=== PATIENT | male | born 1955 | race Caucasian/White ===

== ENCOUNTER 2017-08-21 11:33 | Inpatient (IN) | payer MEDICAID, SELFPAY ==
[2017-08-21] VITALS (11 sets, daily range): BP systolic 113–164; BP diastolic 68–89; PULSE 83–112; RESP 15–28; TEMP 36.4–37.2; O2SAT 93–98; BMI 20.9; BMI 21.2
--- NOTE | 2017-08-21 12:29 | CM.ED ---
Social Work Note Referral from horse show manager stating that pt's significant other wants to speak with SW. Into pt's room and significant other not present. Introduced self and role at [facility]. The pt reports to be living out of his car as he has for the past two weeks. He no longer is employed and does not have a residence. States that he was staying with his sister, but she went on vacation and he does not know if he can stay there when she returns. He does not have a hx of staying at [facility]. Pt reports to drink a half gallon of vodka for every two days. Denies that this was why he is unemployed and states that he quit his job. Inquire if he is interested in treatment and pt states, I got to do something. Pt asks if [facility] has any treatment and inform the pt of [facility] and he states he would prefer to stay local. Educate to the [facility] and discuss [facility]. Pt is agreeable to a referral to [facility]. States his significant other wanted to speak to SW regarding HCPOA. SW to check back with as time allows. Referral made to Lisandra with [facility] who will come to talk to the pt regarding their services. Praveena Vogt, TECHNICAL TRAINING SPECIALIST, [employer]ECTIVE [employer]
[2017-08-21] MEDS: 0.9% Normal Saline 1,000 ML 1000 ML IV ×2 (12:39)
[2017-08-21 12:43] LABS: Hematocrit 34.7 % (40-54); Hemoglobin 12.5 g/dl (13.0-16.5); Mean Corpuscular Hgb 36.1 pg (27.0-32.0); Mean Corpuscular Volume 100.3 fL (80-94); Mean Platelet Vol. 8.2 fl (6.2-12.0); Platelet Count 374 K/mm3 (150-450); RBC Distribution Width CV 11.2 % (11.6-14.6); RBC Distribution Width SD 40.2 fl (35.1-43.9); Red Blood Count 3.46 M/mm3 (4.6-6.2); White Blood Count 8.7 K/mm3 (4.4-11.0)
[2017-08-21 12:45] LABS: Scan Indicated on CBC? Y/N NO
[2017-08-21 13:01] LABS: ALB/GLOB Ratio 0.8 RATIO (0.9-2.4); AST(SGOT) 34 U/L (15-37); Alanine Aminotransfer ALT/SGPT 23 U/L (16-61); Albumin, Serum 3.2 g/dL (3.2-5.0); Alkaline Phosphatase 62 U/L (45-117); Anion Gap 10 (5-15); BUN 11 mg/dL (7-18); BUN/Creat Ratio 12.6 RATIO (10-20); Calcium,Total 8.4 mg/dL (8.5-10.1); Chloride 84 mmol/L (98-107); Creatinine, Serum 0.87 mg/dL (0.70-1.30); EST Glomerular Filtration Rate 95 mL/min (>60); Est Glom Filt Rate - Afr Amer 115 mL/min (>60); Estimated Creatinine Clearance 74.37 ml/min; Glucose 103 mg/dL (74-106); Lipase 230 U/L (73-393); Potassium 2.4 mmol/L (3.5-5.1); Protein, Total 7.2 g/dL (6.4-8.2); Sodium Level 126 mmol/L (136-145)
--- NOTE | 2017-08-21 13:01 | ED.RN ---
LAB CALLED TO NOTIFY PT LAB RESULT. POTASSIUM OF 2.4, DR. BRANDON NOTIFIED FACE TO FACE. NO ORDERS GIVEN.
[2017-08-21] MEDS: Thiamine Hydrochloride 200 MG/2 ML Vial 100 MG IV (13:07)
--- NOTE | 2017-08-21 15:01 | NURSING ---
DR SHARI BRANDON
--- NOTE | 2017-08-21 15:04 | NURSING ---
DR MCCARTHY IN ER
--- NOTE | 2017-08-21 15:05 | NURSING ---
MED SURG ALCOHOL USE, WITHDRAWAL CORNICI
--- NOTE | 2017-08-21 15:13 | ED.VISSUMM ---
- ER Visit Summary Date of Service: 08/21/17 Chief Complaint: Weakness History of Present Illness: The patient is a 62 M presents with weakness nausea and inability to eat for the last 2-3 days. He is an alcoholic he has not eaten and has continued to drink alcohol. He does not feel confused. He has a history of pancreatitis but he has no abdominal pain. Physical Examination: Not appear in acute distress. Appears chronically ill. Dry mucous membranes, no obvious facial deformity No C-spine tenderness supple neck. Regular rate and rhythm without any obvious murmurs Clear lungs bilaterally speaking in full sentences without any obvious respiratory distress Abdomen soft and nontender no guarding or rebound Moves all extremities without any difficulty or pain. There is a gluteal ulcerated lesion that does not appear infected Alert oriented ?3 with no gross focal deficit Emergency Department Course and Treatment: Patient is found to be hyponatremic, hypokalemic and dehydrated. Thiamine was given. Potassium was given an IV fluids. Patient will be admitted for further workup. Disposition: Admit stable condition Impression: Hypokalemia Hyponatremia Dehydration Chronic alcoholism This note was generated with [employer] dictation software. It may contain incorrect words, spelling, and punctuation that were not noted in review of the chart prior to signing ED Disposition - Plan for ED Patient: Chief Complaint: Substance Abuse Referrals: Dylon Flores MD [Primary Care Provider] -
--- NOTE | 2017-08-21 15:30 | HP.PCM_ITS ---
Problem List (1) Generalized weakness Status: Acute (2) Recurrent falls Status: Acute (3) Chronic alcohol use and dependence Status: Acute (4) Gastritis Status: Acute (5) Pancreatic pseudocyst Status: Chronic (6) Pancreatitis Status: Chronic (7) Alcohol abuse Status: Chronic (8) Cholelithiasis Status: Chronic (9) GERD (gastroesophageal reflux disease) Status: Chronic (10) Hiatal hernia Status: Chronic (11) Hypertension Status: Chronic (12) Severe malnutrition Status: Chronic (13) Tobacco dependence Status: Chronic History of Present Illness Date of Admission: 08/21/17 Chief Complaint: Chronic alcohol abuse and dependence and withdrawal The patient is a 62 year old M with multiple comorbidities including recurrent admission for alcohol withdrawal and acute on recurrent pancreatitis came to ER with generalized weakness, nausea, loss of appetite and recurrent fall and poor general health. Patient denies hematemesis, melena or hematochezia or abdominal pain. He has known history of pancreatitis and is on pancreatic lipase tablet. Patient has multiple wounds and scabs on lower extremities and also on cleft and buttock region. Patient also complained of burning sensation and pain and needles on lower legs and feet. Denies diabetes mellitus. Patient daily drinks half a gallon of vodka, increased his dose about 3 weeks ago. Patient has history of remission and relapsed multiple times. He denies other substance use including opioids, IV heroin, crack cocaine or drugs. Denies any recent seizure, hallucination. Currently is alert awake and oriented and coherent speech. In ED, vitals showed heart rate 112/min, blood pressure 162/81 normal pulse ox. Basic labs was significant for severe hypokalemia, 2.4, hyponatremia sodium 126 , but normal platelet, hemoglobin 12.5 g percent. LFTs in normal range. Lipase normal [] Past Medical History Past Medical History (Chronic Problems): Chronic Problems Pancreatic pseudocyst (Chronic) Pancreatitis (Chronic) Cholelithiasis (Chronic) Alcohol abuse (Chronic) Hiatal hernia (Chronic) GERD (gastroesophageal reflux disease) (Chronic) Severe malnutrition (Chronic) Tobacco dependence (Chronic) Hypertension (Chronic) Allergies Penicillins [PCN] Allergy (Verified 08/21/17 11:34) Unknown Home Medications: Ambulatory Orders Medication Instructions Recorded Folic Acid 1 mg PO DAILY@0800 05/31/16 Multivitamin [Daily Multiple 1 each PO DAILY 04/18/17 Vitamin] Spironolactone [Aldactone] 50 mg PO BID #60 tablet 06/18/16 Aspirin [Aspirin, Baby] 81 mg PO DAILY@0800 07/29/16 Magnesium Oxide [Mag-Ox 400] 400 mg PO DAILY 07/29/16 Pantoprazole Sodium [Protonix] 40 mg PO DAILY #30 tablet 07/31/16 lipase/protease/amylase 1 capsule PO TIDCM #90 capsule 07/31/16 [Pancrelipase (5000-17,000-27,000)] Ondansetron [Zofran Odt] 4 mg PO Q6H PRN PRN 08/21/17 Surgical History: no surgical history Psychiatric History: No pertinent psych hx Smoking Status: Current every day smoker - *Family History Paternal History Items: Asthma, - - No known medical history. Sibling History Items: - - Brother of cancer. Maternal History Items: Cancer - Unknown what type. Review of Systems Constitutional: Reports: Anorexia, Malaise, Weakness, Fatigue HEENT: Denies: Head Aches, Sinus Congestion, Sinus Drainage Cardiovascular: Denies: Chest Pain, Palpitations Respiratory: Denies: Cough, Shortness of breath at rest, Sputum production Gastrointestinal: Reports: Diarrhea, Nausea. Denies: Abdominal Pain, Hematemesis, Hematochezia, Melena, Vomiting Genitourinary: Denies: Dysuria Musculoskeletal: Denies: Joint Pain, Joint Tenderness Skin: Denies: Rash, Wounds Neurological: Reports: Balance problems, Confusion. Denies: Focal weakness, Numbness, Tingling Psychiatric: Denies: Anxiety, Depression, Homicidal Ideations, Suicidal Ideations Hematologic/ Lymphatic: Denies: Easy Bruising, Easy Bleeding VTE Information - Inpt Only VTE Present on Admission: No VTE Mechan Device Prophylaxis: SCD's VTE Pharm Prophylaxis ordered?: Yes Patient Problems: Active and Suspected Problems Generalized weakness (Acute) Recurrent falls (Acute) Chronic alcohol use and dependence (Acute) - Physical Exam General: Alert, Oriented x3, Cooperative HEENT: Atraumatic, PERRLA, EOMI, Normocephalic Oral: Dry Mucosa Neck: Supple, No JVD, Negative Carotid Bruits Lungs: Clear to auscultation, Normal air movement, No rhonchi, No wheeze, No rales Cardiovascular: Regular rate, Regular Rhythm, Normal S1, Normal S2, No murmurs Abdomen: Bowel Sounds Present, Soft, Non Tender, Non-Distended Extremities: No edema, Capillary Refill Less than 3 Seconds Skin: Ulcer/ Wound - Multiple superficial wounds in his calves on the extremities and in the buttocks and cleft. No discharge. Musculoskeletal: No Tenderness to Palpation of Joints or Extremities, Arthritic Changes, Muscle Wasting Neurological: Cranial nerves II-XII grossly intact Psych/Mental Status: Normal Affect, Appropriate Vital Signs Temp Pulse Resp BP Pulse Ox 97.8 F 97 28 H 145/89 H 96 08/21/17 11:34 08/21/17 14:33 08/21/17 14:33 08/21/17 14:33 08/21/17 14:33 Assessment/Plan All Active Problems Generalized weakness (Acute) Recurrent falls (Acute) Chronic alcohol use and dependence (Acute) Gastritis (Acute) Acute alcoholic pancreatitis (Resolved) Ascites (Resolved) Right leg DVT (Resolved) The patient is a 62 year old M with multiple comorbidities including recurrent admission for alcohol withdrawal and acute on recurrent pancreatitis came to ER with generalized weakness, nausea, loss of appetite and recurrent fall and poor general health. Patient denies hematemesis, melena or hematochezia or abdominal pain. He has known history of pancreatitis and is on pancreatic lipase tablet. Patient has multiple wounds and scabs on lower extremities and also on bridget cleft and buttock region. Patient also complained of burning sensation and pain and needles on lower legs and feet. Denies diabetes mellitus. Patient daily drinks half a gallon of vodka, increased his dose about 3 weeks ago. Patient has history of remission and relapsed multiple times. He denies other substance use including opioids, IV heroin, crack cocaine or drugs. Denies any recent seizure, hallucination. Currently is alert awake and oriented and coherent speech. In ED, vitals showed heart rate 112/min, blood pressure 162/81 normal pulse ox. Basic labs was significant for severe hypokalemia, 2.4, hyponatremia sodium 126 , but normal platelet, hemoglobin 12.5 g percent. LFTs in normal range. Lipase normal [] 1. Chronic alcohol use and dependence with concern of alcohol withdrawal: Currently, patient is having diarrhea and at home sometimes he gets confused. The patient is being admitted on regular MedSur floor on telemetry. IV fluid normal saline with KCl, IV thiamine given in ER and continued, multivitamin. Serum B12, folic acid and thiamine ordered. On medical stabilization program as per [facility] protocol for alcohol withdrawal. 2. Recurrent fall: PT and OT evaluation. Patient is not able to take care of himself. 3. Severe protein calorie malnutrition, anorexia secondary to chronic alcohol use: Senior Qc Technician consult. On nutritional supplement. 4. Electrolyte disorder: Severe hypokalemia, hyponatremia: Electrolytes being replaced. Monitor and correct accordingly. 5. Recurrent pancreatitis with history of endoscopic pancreatic cyst removal in May 2017: Patient had pancreatic cyst removed in [facility]. Currently lipase is normal and he denies abdominal pain other symptoms of pancreatitis. 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 The polyp was not removed because the pt was on anticoagulation for DVT. EGD showed GERD and gastritis with a small HH. He also had MRCP which showed normal pancreatic duct and a small 0.9 cm cystic focus in pancreatic body for which she had pancreatic cyst removal as mentioned above. 6. Other chronic comorbidities include hypertension, GERD, gastritis, and tobacco dependence: On Protonix. Home medication reconciliation done. Patient is on his spironolactone 50 mg twice daily after he had ascites during admission in May 2016 DVT prophylaxis: On heparin 5000 units subcutaneous twice daily and bilateral SCDs This note was generated with [employer] dictation software. Every effort was made to ensure accuracy, however computerized manager critical care mistakes may persist. Code Visit Inpatient E&M: 97737 Init Hosp L3
[2017-08-21 16:51] LABS: GGTP 94 U/L (15-85)
[2017-08-21] MEDS: chlordiazePOXIDE 25 MG Capsule 50 MG PO ×2 (17:07→22:25)
[2017-08-21] MEDS: Heparin Injection (Vial) 5,000 UNIT/ML VIAL 5000 UNIT SC (17:08)
[2017-08-21] MEDS: Multivitamins,Therapeutic Tablet 1 TABLET PO (17:22)
[2017-08-21] MEDS: Magnesium Oxide 400 MG Tablet PO ×2 (17:22→22:25)
[2017-08-21] MEDS: Spironolactone 25 MG Tablet 50 MG PO (17:22)
[2017-08-21] MEDS: Aspirin 81 MG TAB.CHEW PO (17:45)
[2017-08-21] MEDS: 0.9% NaCl Peripheral Flush Adult/Peds IV (17:45)
[2017-08-21 17:55] LABS: Bedside Glucose 95 mg/dL (70-110)
[2017-08-21] MEDS: Loperamide 2 MG Capsule PO (18:19)
[2017-08-21] MEDS: Potassium Chloride 40 MEQ in 0.9% Normal Saline 1,000 ML 125 MEQ IV (20:51)
[2017-08-21 21:28] LABS: Magnesium 0.9 mg/dL (1.6-2.6); Potassium 3.3 mmol/L (3.5-5.1)
[2017-08-21] MEDS: traZODone 50 MG Tablet PO (22:25)
[2017-08-22] VITALS (12 sets, daily range): BP systolic 126–162; BP diastolic 78–89; PULSE 74–87; RESP 16–18; TEMP 36.8–37.2; O2SAT 98–99
[2017-08-22] MEDS: chlordiazePOXIDE 25 MG Capsule 50 MG PO ×3 (03:44→17:38)
[2017-08-22 03:50] LABS: Amphetamine Urine VISTA NEGATIVE (<1000 ng/mL); Barbiturate Urine VISTA NEGATIVE (< 200 ng/mL); Benzodiazepine Urine VISTA POSITIVE (< 200 ng/mL); Cocaine Urine VISTA NEGATIVE (< 300 ng/mL); Ecstacy Urine VISTA NEGATIVE (< 500 ng/mL); Methadone Urine VISTA NEGATIVE (< 300 ng/mL); PCP Urine VISTA NEGATIVE (< 25 ng/mL); THC Urine VISTA NEGATIVE (< 50 ng/mL); Vista UDS pH Range 6
[2017-08-22] MEDS: Potassium Chloride 40 MEQ in 0.9% Normal Saline 1,000 ML 125 MEQ IV ×3 (04:58→22:35)
[2017-08-22 06:31] LABS: Anion Gap 10 (5-15); BUN 14 mg/dL (7-18); BUN/Creat Ratio 18.5 RATIO (10-20); Calcium,Total 6.9 mg/dL (8.5-10.1); Chloride 102 mmol/L (98-107); Creatinine, Serum 0.76 mg/dL (0.70-1.30); EST Glomerular Filtration Rate 112 mL/min (>60); Est Glom Filt Rate - Afr Amer 135 mL/min (>60); Estimated Creatinine Clearance 85.92 ml/min; Glucose 86 mg/dL (74-106); Potassium 3.1 mmol/L (3.5-5.1); Sodium Level 140 mmol/L (136-145)
[2017-08-22 07:50] LABS: Magnesium 0.8 mg/dL (1.6-2.6)
[2017-08-22] MEDS: Folic Acid 1 MG Tablet PO (08:20)
[2017-08-22] MEDS: Spironolactone 25 MG Tablet 50 MG PO ×2 (08:20→21:43)
[2017-08-22] MEDS: Magnesium Oxide 400 MG Tablet PO ×2 (08:20→21:43)
[2017-08-22] MEDS: Aspirin 81 MG TAB.CHEW PO (08:20)
[2017-08-22] MEDS: Multivitamins,Therapeutic Tablet 1 TABLET PO (08:21)
[2017-08-22] MEDS: Pantoprazole Sodium 40 MG Tablet PO (08:21)
[2017-08-22] MEDS: Thiamine Hydrochloride 100 MG Tablet PO (08:21)
[2017-08-22] MEDS: Heparin Injection (Vial) 5,000 UNIT/ML VIAL 5000 UNIT SC ×2 (08:22→21:44)
--- NOTE | 2017-08-22 09:58 | PCM.PN.HOSP ---
Patient Problems: Active and Suspected Problems Generalized weakness (Acute) Recurrent falls (Acute) Chronic alcohol use and dependence (Acute) Subjective: Patient is a 62-year-old male with a history of chronic alcohol abuse and chronic pancreatitis. He was admitted by the ED with a complaint of generalized weakness, nausea, loss of appetite and recurrent falls. He says he drinks about 1/2 gallon of vodka daily and his last drink was prior to admission, but could not remember the exact time. He denied any other drug use. Labs done showed severe hypokalemia with potassium of 2.4, hyponatremia with sodium of 126 last otherwise normal. He has been admitted for hypokalemia and hyponatremia. Seen and examined. He had no complaints and feels better. She has been drinking for a long while but tried quitting after going to rehab. The results were unsuccessful he started drinking again a few months ago because of some family problems. Is currently itinerant and living with a friend in [place] as a sister who usually lives with is out of town. Denies any fever or chills, any cough or chest pain, shortness of breath, any abdominal pain, any diarrhea vomiting. Review of systems otherwise negative. Vitals/I&O's: Vital Signs Temp Pulse Resp BP Pulse Ox 98.5 F 78 16 136/86 H 99 08/22/17 08:25 08/22/17 08:25 08/22/17 08:25 08/22/17 08:25 08/22/17 08:25 Oxygen Delivery Method Room Air Weight: 131 lb 3.2 oz Body Mass Index (BMI) 21.2 Intake and Output for Last 24 Hours 08/20/17 08/21/17 08/22/17 23:59 23:59 23:59 Intake Total 120 / 120 2086 Balance 120 / 120 2086 General: Alert, Oriented x3, Cooperative, No apparent distress HEENT: Atraumatic, PERRLA, EOMI, Normocephalic Oral: Moist Mucosa Neck: Supple, No JVD, Negative Carotid Bruits Lungs: Clear to auscultation, Normal air movement, No rhonchi, No wheeze, No rales Cardiovascular: Regular rate, Regular Rhythm, Normal S1, Normal S2, No murmurs Abdomen: Bowel Sounds Present, Soft, Non Tender, Non-Distended, No Hepato-splenomegaly Extremities: No edema, Capillary Refill Less than 3 Seconds Skin: No rashes, No breakdown Musculoskeletal: No Tenderness to Palpation of Joints or Extremities Lymphatic: No Cervical, Supraclavicular, or Inguinal Adenopathy Neurological: Cranial nerves II-XII grossly intact, Motor Exam 5/5 strength throughout, - - Gait not assessed as he said he felt unstable when walking Psych/Mental Status: Flat Affect, Alert and oriented to time, place, person, mood and affect Laboratory Results 08/21/17 17:48: POC Glucose 95 08/21/17 20:56: Potassium 3.3 L, Magnesium 0.9 L* 08/22/17 01:20: Urine Opiates Screen NEGATIVE, Urine Methadone Screen NEGATIVE, Ur Barbiturates Screen NEGATIVE, Ur Phencyclidine Scrn NEGATIVE, Ur Amphetamines Screen NEGATIVE, U Methamphetamin-MDMA NEGATIVE, U Benzodiazepines Scrn POSITIVE H, Urine Cocaine Screen NEGATIVE, U Cannabinoids Screen NEGATIVE, Ur Drug Screen Comment 08/22/17 05:32: Sodium 140, Potassium 3.1 L, Chloride 102, Carbon Dioxide 28.0, Anion Gap 10, BUN 14, Creatinine 0.76, Estim Creat Clear Calc 85.92, Est GFR (MDRD) Af Amer 135, Est GFR (MDRD) Non-Af 112, BUN/Creatinine Ratio 18.5, Glucose 86, Calcium 6.9 L, Folate 10.20 08/22/17 05:32: Vitamin B12 Pending 08/22/17 05:32: Whole Bld Vitamin B1 Pending 08/22/17 05:32: Magnesium 0.8 L* Current Medications Acetaminophen (Tylenol) 500 mg PO Q4H PRN PRN PRN Reason: Temp > 100.4 F Al Hydroxide/Mg Hydroxide (Mylanta Ii) 30 ml PO Q6H PRN PRN PRN Reason: dyspesia Aspirin (Aspirin, Baby) 81 mg PO DAILY@0800 [facility] Last Admin: 08/22/17 08:20 Dose: 81 mg Chlordiazepoxide (Librium) 50 mg PO Q6H [facility] PRN Reason: Taper Stop: 08/24/17 17:59 Last Admin: 08/22/17 09:26 Dose: 50 mg Dicyclomine HCl (Bentyl) 20 mg PO Q6H PRN PRN PRN Reason: abdominal discomfort [facility]) [facility] Admin: 08/22/17 08:20 Dose: 1 mg Heparin Sodium (Porcine) (Heparin Na) 5,000 unit SC Q12 [facility] Last Admin: 08/22/17 08:22 Dose: 5,000 u Hydroxyzine Pamoate (Vistaril Pamoate Capsule) 50 mg PO Q6H PRN PRN PRN Reason: Mild Anxiety (score 1/3) Potassium Chloride 40 meq/ (Sodium Chloride) 1,020 mls @ 125 mls/hr IV .Q8H10M [facility] Last Admin: 08/22/17 04:58 Dose: 125 mls/hr Ibuprofen (Motrin) 400 mg PO Q8H PRN PRN PRN Reason: Mild-Moderate Pain (1-5/10) Loperamide HCl (Imodium) 2 - 4 mg PO UD PRN PRN Reason: LOOSE STOOLS Last Admin: 08/21/17 18:19 Dose: 4 mg Lorazepam (Ativan) 1 mg IV Q4H PRN PRN PRN Reason: Severe Anxiety Magnesium Oxide (Mag-Ox 400) 400 mg PO BID [facility] Last Admin: 08/22/17 08:20 Dose: 400 mg Methocarbamol (Methocarbamol) 750 mg PO Q6H PRN PRN PRN Reason: Muscle Aches Multivitamins ([facility]ivitamin) [facility] Last Admin: 08/22/17 08:21 Dose: 1 tablet Nutritional Formula (Lactose Free) (Ensure Enlive) 120 ml PO 4X/DAY [facility] Last Admin: 08/22/17 08:24 Dose: 120 ml Ondansetron HCl (Zofran Odt) 4 mg PO Q6H PRN PRN PRN Reason: NAUSEA Pancrelipase (Pancrelipase (5000-17,000-27,000)) 1 capsule PO TIDCM [facility] Last Admin: 08/22/17 08:21 Dose: 1 capsule Pantoprazole Sodium (Protonix) 40 mg PO DAILY [facility] Last Admin: 08/22/17 08:21 Dose: 40 mg Senna (Senokot) 1 tablet PO QHS PRN PRN Reason: Constipation Sodium Chloride () 5 - 30 ml IV UD PRN PRN Reason: SALINE FLUSH Last Admin: 08/21/17 17:45 Dose: 10 ml Spironolactone (Aldactone) 50 mg PO BID [facility] Last Admin: 08/22/17 08:20 Dose: 50 mg Thiamine HCl (Vitamin B1) 100 mg PO DAILYCM [facility] Last Admin: 08/22/17 08:21 Dose: 100 mg Trazodone HCl (Desyrel) 50 mg PO QHS [facility] Last Admin: 08/21/17 22:25 Dose: 50 mg Medical Necessity - Tobacco Use Smoking Status: Current every day smoker Tobacco Use: Cigarettes Assessment/Plan All Active Problems Generalized weakness (Acute) Recurrent falls (Acute) Chronic alcohol use and dependence (Acute) Gastritis (Acute) Acute alcoholic pancreatitis (Resolved) Ascites (Resolved) Right leg DVT (Resolved) 1. 62-year-old male with history of chronic alcohol abuse and recurrent pancreatitis admitted with complaint of frequent falls and general feeling of unwellness. 1. Hypokalemia likely due to alcohol abuse K was 3.3 on admission, is 3.1 today will replace and monitor 2. Hypomagnesemia: and hypocalcemia was 0.9 on admission, replaced. Now 0.8. Will replace and monitor calcium is 6.9 today, corrected for albumin ~ 7.5. will replace and monitor 3. 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 Gait not assessed as he didnt feel comfortable walking. PT/OT consulted. 4. Chronic alcohol abuse About half a bottle of vodka every day. Received IV thiamine in the ED. On IV fluids normal saline with potassium replacement. Multivite. Serum vitamin B12 and folic acid levels ordered. Alcohol withdrawal protocol as per [facility] protocol. CIWA score today is 1 5. Recurrent pancreatitis history of endoscopic pancreatic cyst removal in 05/31 at [facility]. lipase was WNL during this admission. stable. Will continue monitoring on pancreatic enzyme replacement 6. HTN: fairly controlled. On spironolactone 7. GERD: on PPI 8. DVT prophylaxis: heparin and SCDs This note was generated with [employer] dictation software. It may contain incorrect words, spelling, and punctuation that were not noted in checking the note before signing. Code Visit Inpatient E&M: 81768 Subs Hosp L3
--- NOTE | 2017-08-22 10:12 | PN_ITS ---
Patient Problems: Active and Suspected Problems Generalized weakness (Acute) Recurrent falls (Acute) Chronic alcohol use and dependence (Acute) Subjective: Patient is a 62-year-old male with a history of chronic alcohol abuse and chronic pancreatitis. He was admitted by the ED with a complaint of generalized weakness, nausea, loss of appetite and recurrent falls. He says he drinks about 1/2 gallon of vodka daily and his last drink was prior to admission , but could not remember the exact time. He denied any other drug use. Labs done showed severe hypokalemia with potassium of 2.4, hyponatremia with sodium of 126 last otherwise normal. He has been admitted for hypokalemia and hyponatremia. Seen and examined. He had no complaints and feels better. She has been drinking for a long while but tried quitting after going to rehab. The results were unsuccessful he started drinking again a few months ago because of some family problems. Is currently itinerant and living with a friend in [place] as a sister who usually lives with is out of town. Denies any fever or chills, any cough or chest pain, shortness of breath, any abdominal pain, any diarrhea vomiting. Review of systems otherwise negative. Vitals/I&O's: Vital Signs Temp Pulse Resp BP Pulse Ox 98.5 F 78 16 136/86 H 99 08/22/17 08:25 08/22/17 08:25 08/22/17 08:25 08/22/17 08:25 08/22/17 08:25 Oxygen Delivery Method Room Air Weight: 131 lb 3.2 oz Body Mass Index (BMI) 21.2 Intake and Output for Last 24 Hours 08/20/17 08/21/17 08/22/17 23:59 23:59 23:59 Intake Total 120 / 120 2086 Balance 120 / 120 2086 General: Alert, Oriented x3, Cooperative, No apparent distress HEENT: Atraumatic, PERRLA, EOMI, Normocephalic Oral: Moist Mucosa Neck: Supple, No JVD, Negative Carotid Bruits Lungs: Clear to auscultation, Normal air movement, No rhonchi, No wheeze, No rales Cardiovascular: Regular rate, Regular Rhythm, Normal S1, Normal S2, No murmurs Abdomen: Bowel Sounds Present, Soft, Non Tender, Non-Distended, No Hepato- splenomegaly Extremities: No edema, Capillary Refill Less than 3 Seconds Skin: No rashes, No breakdown Musculoskeletal: No Tenderness to Palpation of Joints or Extremities Lymphatic: No Cervical, Supraclavicular, or Inguinal Adenopathy Neurological: Cranial nerves II-XII grossly intact, Motor Exam 5/5 strength throughout, - - Gait not assessed as he said he felt unstable when walking Psych/Mental Status: Flat Affect, Alert and oriented to time, place, person, mood and affect Laboratory Results 08/21/17 17:48: POC Glucose 95 08/21/17 20:56: Potassium 3.3 L, Magnesium 0.9 L* 08/22/17 01:20: Urine Opiates Screen NEGATIVE, Urine Methadone Screen NEGATIVE, Ur Barbiturates Screen NEGATIVE, Ur Phencyclidine Scrn NEGATIVE, Ur Amphetamines Screen NEGATIVE, U Methamphetamin-MDMA NEGATIVE, U Benzodiazepines Scrn POSITIVE H, Urine Cocaine Screen NEGATIVE, U Cannabinoids Screen NEGATIVE, Ur Drug Screen Comment 08/22/17 05:32: Sodium 140, Potassium 3.1 L, Chloride 102, Carbon Dioxide 28.0, Anion Gap 10, BUN 14, Creatinine 0.76, Estim Creat Clear Calc 85.92, Est GFR ( MDRD) Af Amer 135, Est GFR (MDRD) Non-Af 112, BUN/Creatinine Ratio 18.5, Glucose 86, Calcium 6.9 L, Folate 10.20 08/22/17 05:32: Vitamin B12 Pending 08/22/17 05:32: Whole Bld Vitamin B1 Pending 08/22/17 05:32: Magnesium 0.8 L* Current Medications Acetaminophen (Tylenol) 500 mg PO Q4H PRN PRN PRN Reason: Temp > 100.4 F Al Hydroxide/Mg Hydroxide (Mylanta Ii) 30 ml PO Q6H PRN PRN PRN Reason: dyspesia Aspirin (Aspirin, Baby) 81 mg PO DAILY@0800 [facility] Last Admin: 08/22/17 08:20 Dose: 81 mg Chlordiazepoxide (Librium) 50 mg PO Q6H [facility] PRN Reason: Taper Stop: 08/24/17 17:59 Last Admin: 08/22/17 09:26 Dose: 50 mg Dicyclomine HCl (Bentyl) 20 mg PO Q6H PRN PRN PRN Reason: abdominal discomfort [facility] ([facility]) [facility] Last Admin: 08/22/17 08:20 Dose: 1 mg Heparin Sodium (Porcine) (Heparin Na) 5,000 unit SC Q12 [facility] Last Admin: 08/22/17 08:22 Dose: 5,000 u Hydroxyzine Pamoate (Vistaril Pamoate Capsule) 50 mg PO Q6H PRN PRN PRN Reason: Mild Anxiety (score 1/3) Potassium Chloride 40 meq/ (Sodium Chloride) 1,020 mls @ 125 mls/hr IV .Q8H10M [facility] Last Admin: 08/22/17 04:58 Dose: 125 mls/hr Ibuprofen (Motrin) 400 mg PO Q8H PRN PRN PRN Reason: Mild-Moderate Pain (1-5/10) Loperamide HCl (Imodium) 2 - 4 mg PO UD PRN PRN Reason: LOOSE STOOLS Last Admin: 08/21/17 18:19 Dose: 4 mg Lorazepam (Ativan) 1 mg IV Q4H PRN PRN PRN Reason: Severe Anxiety Magnesium Oxide (Mag-Ox 400) 400 mg PO BID [facility] Last Admin: 08/22/17 08:20 Dose: 400 mg Methocarbamol (Methocarbamol) 750 mg PO Q6H PRN PRN PRN Reason: Muscle Aches Multivitamins (Multivitamin) 1 tablet [facility] Last Admin: 08/22/17 08:21 Dose: 1 tablet Nutritional Formula (Lactose Free) (Ensure Enlive) 120 ml PO 4X/DAY [facility] Last Admin: 08/22/17 08:24 Dose: 120 ml Ondansetron HCl (Zofran Odt) 4 mg PO Q6H PRN PRN PRN Reason: NAUSEA Pancrelipase (Pancrelipase (5000-17,000-27,000)) 1 capsule PO TIDCM [facility] Last Admin: 08/22/17 08:21 Dose: 1 capsule Pantoprazole Sodium (Protonix) 40 mg PO DAILY [facility] Last Admin: 08/22/17 08:21 Dose: 40 mg Senna (Senokot) 1 tablet PO QHS PRN PRN Reason: Constipation Sodium Chloride () 5 - 30 ml IV UD PRN PRN Reason: SALINE FLUSH Last Admin: 08/21/17 17:45 Dose: 10 ml Spironolactone (Aldactone) 50 mg PO BID [facility] Last Admin: 08/22/17 08:20 Dose: 50 mg Thiamine HCl (Vitamin B1) 100 mg PO DAILYCM [facility] Last Admin: 08/22/17 08:21 Dose: 100 mg Trazodone HCl (Desyrel) 50 mg PO QHS [facility] Last Admin: 08/21/17 22:25 Dose: 50 mg Medical Necessity - Tobacco Use Smoking Status: Current every day smoker Tobacco Use: Cigarettes Assessment/Plan All Active Problems Generalized weakness (Acute) Recurrent falls (Acute) Chronic alcohol use and dependence (Acute) Gastritis (Acute) Acute alcoholic pancreatitis (Resolved) Ascites (Resolved) Right leg DVT (Resolved) 1. 62-year-old male with history of chronic alcohol abuse and recurrent pancreatitis admitted with complaint of frequent falls and general feeling of unwellness. 1. Hypokalemia likely due to alcohol abuse * K was 3.3 on admission, is 3.1 today * will replace and monitor * 2. Hypomagnesemia: and hypocalcemia * was 0.9 on admission, replaced. Now 0.8. Will replace and monitor * calcium is 6.9 today, corrected for albumin ~ 7.5. will replace and monitor 3. 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 Gait not assessed as he didnt feel comfortable walking. PT/OT consulted. 4. Chronic alcohol abuse * About half a bottle of vodka every day. * Received IV thiamine in the ED. On IV fluids normal saline with potassium replacement. Multivite. Serum vitamin B12 and folic acid levels ordered. * Alcohol withdrawal protocol as per [facility] protocol. * CIWA score today is 1 * 5. Recurrent pancreatitis * history of endoscopic pancreatic cyst removal in 05/31 at [facility]. * lipase was WNL during this admission. * stable. Will continue monitoring * on pancreatic enzyme replacement * 6. HTN: fairly controlled. On spironolactone 7. GERD: on PPI 8. DVT prophylaxis: heparin and SCDs This note was generated with Ze[employer] dictation software. It may contain incorrect words, spelling, and punctuation that were not noted in checking the note before signing. Code Visit Inpatient E&M: 21278 Subs Hosp L3
--- NOTE | 2017-08-22 11:54 | NURSING ---
wound photo: brock
[2017-08-22] MEDS: hydrOXYzine PAM 25 MG Capsule 50 MG PO (14:28)
[2017-08-22] MEDS: traZODone 50 MG Tablet PO (21:43)
[2017-08-23] VITALS (9 sets, daily range): BP systolic 125–150; BP diastolic 75–90; PULSE 79–89; RESP 16–18; TEMP 36.8–37.1; O2SAT 97
[2017-08-23] MEDS: Loperamide 2 MG Capsule PO (00:25)
[2017-08-23] MEDS: hydrOXYzine PAM 25 MG Capsule 50 MG PO (00:25)
[2017-08-23] MEDS: Dicyclomine 10 MG Capsule 20 MG PO (00:26)
[2017-08-23] MEDS: chlordiazePOXIDE 25 MG Capsule 50 MG PO ×2 (01:54→09:27)
--- NOTE | 2017-08-23 02:44 | NURSING ---
TECHNICAL STAFF ASSISTANT reported that pt was smoking in the restroom. This nurse and Sherry rn discharge spoke with pt and explained that he can not smoke in the hospital. It was also explained to the pt that he could be cut from the [facility] program for smoking in the hospital. The pt stated that he did not remember being told that. 3 packs of cigarettes and a ferry terminal supervisor were locked up in pts med draw.
--- NOTE | 2017-08-23 02:47 | NURSING ---
auto garage mechanic reported to this rn that pt had been in his bathroom smoking, gonzalez on toilet & half smoked cigarette & pediatrics hospitalist on bedside stand. auto garage mechanic reminded pt [facility] is nonsmoking. this rn reported findings to primary rn and both went in to talk to pt. at first pt denied but room smelled like cigarette smoke, reminded him of policy & [employer] contract. pt told rn where pediatrics hospitalist was, pediatrics hospitalist & cigarettes locked in pt drawer & bed exit on. asked pt to call for assist when getting up. left msg for [employer] [facility].
[2017-08-23] MEDS: Potassium Chloride 40 MEQ in 0.9% Normal Saline 1,000 ML 125 MEQ IV (06:58)
[2017-08-23] MEDS: Pantoprazole Sodium 40 MG Tablet PO (07:51)
[2017-08-23] MEDS: Magnesium Oxide 400 MG Tablet PO (07:51)
[2017-08-23] MEDS: Thiamine Hydrochloride 100 MG Tablet PO (07:52)
[2017-08-23] MEDS: Folic Acid 1 MG Tablet PO (07:52)
[2017-08-23] MEDS: Aspirin 81 MG TAB.CHEW PO (07:52)
[2017-08-23 07:54] LABS: Absolute Lymphocyte Count 1.36 X10^3/ul (0.83-4.51); Absolute Neutrophil Count 4.3 X10^3/uL (2.0-7.7); Anion Gap 7 (5-15); BUN 12 mg/dL (7-18); BUN/Creat Ratio 16.2 RATIO (10-20); Basophil# 0.02 X10^3/uL; Basophil% 0.3 % (0-1); Calcium,Total 7.4 mg/dL (8.5-10.1); Chloride 102 mmol/L (98-107); Creatinine, Serum 0.74 mg/dL (0.70-1.30); EST Glomerular Filtration Rate 114 mL/min (>60); Eosinophil# 0.06 X10^3/uL; Eosinophils% 0.9 % (0-5); Est Glom Filt Rate - Afr Amer 138 mL/min (>60); Estimated Creatinine Clearance 88.24 ml/min; Glucose 87 mg/dL (74-106); Hemoglobin 10.8 g/dl (13.0-16.5); Lymphocyte # 1.36 X10^3/ul (4.0); Lymphocyte % 21.3 % (19-41); Magnesium 1.2 mg/dL (1.6-2.6); Mean Corp Hgb Conc 33.8 g/gl (32-36); Mean Corpuscular Hgb 35.8 pg (27.0-32.0); Mean Platelet Vol. 8.8 fl (6.2-12.0); Monocyte# 0.62 X10^3/uL; Monocyte% 9.7 % (0-10); Neutrophil # 4.32 X10^3/uL (2.7-7.7); Neutrophil % 67.5 % (47-70); Platelet Count 360 K/mm3 (150-450); Potassium 3.8 mmol/L (3.5-5.1); RBC Distribution Width CV 11.6 % (11.6-14.6); RBC Distribution Width SD 43.6 fl (35.1-43.9); Red Blood Count 3.02 M/mm3 (4.6-6.2); Sodium Level 139 mmol/L (136-145); White Blood Count 6.4 K/mm3 (4.4-11.0)
[2017-08-23 08:00] LABS: POSITIVE COUNT NO; POSITIVE DIFFERENTIAL NO; POSITIVE MORPHOLOGY NO
[2017-08-23 08:23] LABS: Vitamin B12 642 pg/mL (211-911)
[2017-08-23] MEDS: Spironolactone 25 MG Tablet 50 MG PO (09:19)
[2017-08-23] MEDS: Multivitamins,Therapeutic Tablet 1 TABLET PO (09:20)
[2017-08-23] MEDS: Heparin Injection (Vial) 5,000 UNIT/ML VIAL 5000 UNIT SC (09:21)
--- NOTE | 2017-08-23 10:11 | PCM.PN.HOSP ---
Patient Problems: Active and Suspected Problems Generalized weakness (Acute) Recurrent falls (Acute) Chronic alcohol use and dependence (Acute) Subjective: Seen and examined. He has no complaints was actually waiting for breakfast, because he was hungry. He denied any fever or chills, any cough or chest pain, shortness of breath, any abdominal pain, any diarrhea vomiting. Review of systems otherwise negative. Vitals/I&O's: Vital Signs Temp Pulse Resp BP Pulse Ox 98.8 F 89 18 137/90 H 98 08/23/17 09:17 08/23/17 09:17 08/23/17 09:17 08/23/17 09:17 08/22/17 21:31 Oxygen Delivery Method Room Air Weight: 131 lb 3.189 oz Body Mass Index (BMI) 21.2 Intake and Output for Last 24 Hours 08/21/17 08/22/17 08/23/17 23:59 23:59 23:59 Intake Total 120 / 120 4646 / 4646 1905 / 1905 Output Total 600 / 600 Balance 120 / 120 4646 / 4646 1305 / 1305 General: Alert, Oriented x3, Cooperative, No apparent distress HEENT: Atraumatic, PERRLA, EOMI, Normocephalic Oral: Moist Mucosa Neck: Supple, No JVD, Negative Carotid Bruits Lungs: Clear to auscultation, Normal air movement, No rhonchi, No wheeze, No rales Cardiovascular: Regular rate, Regular Rhythm, Normal S1, Normal S2, No murmurs Abdomen: Bowel Sounds Present, Soft, Non Tender, Non-Distended, No Hepato-splenomegaly Extremities: No clubbing, No cyanosis, No edema, Capillary Refill Less than 3 Seconds Skin: No rashes, No breakdown Musculoskeletal: No Tenderness to Palpation of Joints or Extremities Lymphatic: No Cervical, Supraclavicular, or Inguinal Adenopathy Neurological: Cranial nerves II-XII grossly intact Psych/Mental Status: Normal Affect, Appropriate, Alert and oriented to time, place, person, mood and affect Laboratory Results 08/22/17 05:32: Vitamin B12 642 08/23/17 06:46: Sodium 139, Potassium 3.8, Chloride 102, Carbon Dioxide 30.0, Anion Gap 7, BUN 12, Creatinine 0.74, Estim Creat Clear Calc 88.24, Est GFR (MDRD) Af Amer 138, Est GFR (MDRD) Non-Af 114, BUN/Creatinine Ratio 16.2, Glucose 87, Calcium 7.4 L, Magnesium 1.2 L 08/23/17 06:46: WBC 6.4, RBC 3.02 L, Hgb 10.8 L, Hct 32.0 L, MCV 106.0 H, MCH 35.8 H, MCHC 33.8, RDW 11.6, RDW Differential 43.6, Plt Count 360, MPV 8.8, Immature Gran % (Auto) 0.300, Neut % (Auto) 67.5, Lymph % (Auto) 21.3, [place] % (Auto) 9.7, Eos % (Auto) 0.9, Baso % (Auto) 0.3, Absolute Neuts (auto) 4.3, Absolute Lymphs (auto) 1.36, Total Counted Not Reportable Current Medications Acetaminophen (Tylenol) 500 mg PO Q4H PRN PRN PRN Reason: Temp > 100.4 F Al Hydroxide/Mg Hydroxide (Mylanta Ii) 30 ml PO Q6H PRN PRN PRN Reason: dyspesia Aspirin (Aspirin, Baby) 81 mg PO DAILY@0800 [facility] Last Admin: 08/23/17 07:52 Dose: 81 mg Chlordiazepoxide (Librium) 50 mg PO Q8H [facility] PRN Reason: Taper Stop: 08/24/17 17:59 Last Admin: 08/23/17 09:27 Dose: 50 mg Dicyclomine HCl (Bentyl) 20 mg PO Q6H PRN PRN PRN Reason: abdominal discomfort Last Admin: 08/23/17 00:26 Dose: 20 mg Folic Acid (Folic Acid) 1 mg PO DAILYCM [facility] Last Admin: 08/23/17 07:52 Dose: 1 mg Heparin Sodium (Porcine) (Heparin Na) 5,000 unit SC Q12 [facility] Last Admin: 08/23/17 09:21 Dose: 5,000 u Hydroxyzine Pamoate (Vistaril Pamoate Capsule) 50 mg PO Q6H PRN PRN PRN Reason: Mild Anxiety (score 1/3) Last Admin: 08/23/17 00:25 Dose: 50 mg Potassium Chloride 40 meq/ (Sodium Chloride) 1,020 mls @ 125 mls/hr IV .Q8H10M [facility] Last Admin: 08/23/17 06:58 Dose: 125 mls/hr Magnesium Sulfate (4 Gm/100 Ml) 4 gm in 100 mls @ 25 mls/hr IV X1 ONE Stop: 08/23/17 14:09 Ibuprofen (Motrin) 400 mg PO Q8H PRN PRN PRN Reason: Mild-Moderate Pain (1-5/10) Loperamide HCl (Imodium) 2 - 4 mg PO UD PRN PRN Reason: LOOSE STOOLS Last Admin: 08/23/17 00:25 Dose: 4 mg Lorazepam (Ativan) 1 mg IV Q4H PRN PRN PRN Reason: Severe Anxiety Magnesium Oxide (Mag-Ox 400) 400 mg PO BID [facility] Last Admin: 08/23/17 07:51 Dose: 400 mg Methocarbamol (Methocarbamol) 750 mg PO Q6H PRN PRN PRN Reason: Muscle Aches [facility] Last Admin: 08/23/17 09:20 Dose: 1 tablet Nutritional Formula (Lactose Free) (Ensure Enlive) 120 ml PO 4X/DAY [facility] Last Admin: 08/23/17 09:21 Dose: 120 ml Ondansetron HCl (Zofran Odt) 4 mg PO Q6H PRN PRN PRN Reason: NAUSEA Pancrelipase (Pancrelipase (5000-17,000-27,000)) 1 capsule PO TIDCM [facility] Last Admin: 08/23/17 09:19 Dose: 1 capsule Pantoprazole Sodium (Protonix) 40 mg PO DAILY [facility] Last Admin: 08/23/17 07:51 Dose: 40 mg Senna (Senokot) 1 tablet PO QHS PRN PRN Reason: Constipation Sodium Chloride () 5 - 30 ml IV UD PRN PRN Reason: SALINE FLUSH Last Admin: 08/21/17 17:45 Dose: 10 ml Spironolactone (Aldactone) 50 mg PO BID [facility] Last Admin: 08/23/17 09:19 Dose: 50 mg Thiamine [facility] ([facility] B[facility]) [facility] Last Admin: 08/23/17 07:52 Dose: 100 mg Trazodone HCl (Desyrel) 50 mg PO QHS [facility] Last Admin: 08/22/17 21:43 Dose: 50 mg Medical Necessity - Tobacco Use Smoking Status: Current every day smoker Tobacco Use: Cigarettes Assessment/Plan All Active Problems Generalized weakness (Acute) Recurrent falls (Acute) Chronic alcohol use and dependence (Acute) Gastritis (Acute) Acute alcoholic pancreatitis (Resolved) Ascites (Resolved) Right leg DVT (Resolved) 1. 62-year-old male with history of chronic alcohol abuse and recurrent pancreatitis admitted with complaint of frequent falls and general feeling of unwellness. 1. Hypokalemia likely due to alcohol abuse resolved. K is 3.8 today will monitor K was 3.3 on admission, is 3.1 today will replace and monitor 2. Hypomagnesemia: and hypocalcemia resolving. Mg is 1.2 toay. Will give 4gram of magnesium Ca is up to 7.4 today, ~ 8 when corrected for albumin will give oral replacement. 3. 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 PT/OT consulted. 4. Chronic alcohol abuse About half a bottle of vodka every day. Received IV thiamine in the ED. On IV fluids normal saline with potassium replacement. Multivite. Serum vitamin B12 and folic acid levels ordered. Alcohol withdrawal protocol as per [facility] protocol. CIWA score today is 3, per nurses documentation., per my assessment at time of review, CIWA score is 1. 5. Recurrent pancreatitis history of endoscopic pancreatic cyst removal in 05/31 at [facility]. lipase was WNL during this admission. stable. on pancreatic enzyme replacement 6. HTN: fairly controlled. On spironolactone 7. GERD: on PPI 8. DVT prophylaxis: heparin and SCDs Disposition: WIll DC to rehab facility today for therapy for alcohol dependence. To follow up with PCP. WIll give oral magnesium and calcium replacements This note was generated with [employer] dictation software. It may contain incorrect words, spelling, and punctuation that were not noted in checking the note before signing. Code Visit Inpatient E&M: 56242 Subs Hosp L2
--- NOTE | 2017-08-23 10:18 | PN_ITS ---
Patient Problems: Active and Suspected Problems Generalized weakness (Acute) Recurrent falls (Acute) Chronic alcohol use and dependence (Acute) Subjective: Seen and examined. He has no complaints was actually waiting for breakfast, because he was hungry. He denied any fever or chills, any cough or chest pain, shortness of breath, any abdominal pain, any diarrhea vomiting. Review of systems otherwise negative. Vitals/I&O's: Vital Signs Temp Pulse Resp BP Pulse Ox 98.8 F 89 18 137/90 H 98 08/23/17 09:17 08/23/17 09:17 08/23/17 09:17 08/23/17 09:17 08/22/17 21:31 Oxygen Delivery Method Room Air Weight: 131 lb 3.189 oz Body Mass Index (BMI) 21.2 Intake and Output for Last 24 Hours 08/21/17 08/22/17 08/23/17 23:59 23:59 23:59 Intake Total 120 / 120 4646 / 4646 1905 / 1905 Output Total 600 / 600 Balance 120 / 120 4646 / 4646 1305 / 1305 General: Alert, Oriented x3, Cooperative, No apparent distress HEENT: Atraumatic, PERRLA, EOMI, Normocephalic Oral: Moist Mucosa Neck: Supple, No JVD, Negative Carotid Bruits Lungs: Clear to auscultation, Normal air movement, No rhonchi, No wheeze, No rales Cardiovascular: Regular rate, Regular Rhythm, Normal S1, Normal S2, No murmurs Abdomen: Bowel Sounds Present, Soft, Non Tender, Non-Distended, No Hepato- splenomegaly Extremities: No clubbing, No cyanosis, No edema, Capillary Refill Less than 3 Seconds Skin: No rashes, No breakdown Musculoskeletal: No Tenderness to Palpation of Joints or Extremities Lymphatic: No Cervical, Supraclavicular, or Inguinal Adenopathy Neurological: Cranial nerves II-XII grossly intact Psych/Mental Status: Normal Affect, Appropriate, Alert and oriented to time, place, person, mood and affect Laboratory Results 08/22/17 05:32: Vitamin B12 642 08/23/17 06:46: Sodium 139, Potassium 3.8, Chloride 102, Carbon Dioxide 30.0, Anion Gap 7, BUN 12, Creatinine 0.74, Estim Creat Clear Calc 88.24, Est GFR ( MDRD) Af Amer 138, Est GFR (MDRD) Non-Af 114, BUN/Creatinine Ratio 16.2, Glucose 87, Calcium 7.4 L, Magnesium 1.2 L 08/23/17 06:46: WBC 6.4, RBC 3.02 L, Hgb 10.8 L, Hct 32.0 L, MCV 106.0 H, MCH 35.8 H, MCHC 33.8, RDW 11.6, RDW Differential 43.6, Plt Count 360, MPV 8.8, Immature Gran % (Auto) 0.300, Neut % (Auto) 67.5, Lymph % (Auto) 21.3, [place] % ( Auto) 9.7, Eos % (Auto) 0.9, Baso % (Auto) 0.3, Absolute Neuts (auto) 4.3, Absolute Lymphs (auto) 1.36, Total Counted Not Reportable Current Medications Acetaminophen (Tylenol) 500 mg PO Q4H PRN PRN PRN Reason: Temp > 100.4 F Al Hydroxide/Mg Hydroxide (Mylanta Ii) 30 ml PO Q6H PRN PRN PRN Reason: dyspesia Aspirin (Aspirin, Baby) 81 mg PO DAILY@0800 [facility] Last Admin: 08/23/17 07:52 Dose: 81 mg Chlordiazepoxide (Librium) 50 mg PO Q8H [facility] PRN Reason: Taper Stop: 08/24/17 17:59 Last Admin: 08/23/17 09:27 Dose: 50 mg Dicyclomine HCl (Bentyl) 20 mg PO Q6H PRN PRN PRN Reason: abdominal discomfort Last Admin: 08/23/17 00:26 Dose: 20 mg Folic Acid (Folic Acid) 1 mg PO DAILYCM [facility] Last Admin: 08/23/17 07:52 Dose: 1 mg Heparin Sodium (Porcine) (Heparin Na) 5,000 unit SC Q12 [facility] Last Admin: 08/23/17 09:21 Dose: 5,000 u Hydroxyzine Pamoate (Vistaril Pamoate Capsule) 50 mg PO Q6H PRN PRN PRN Reason: Mild Anxiety (score 1/3) Last Admin: 08/23/17 00:25 Dose: 50 mg Potassium Chloride 40 meq/ (Sodium Chloride) 1,020 mls @ 125 mls/hr IV .Q8H10M [facility] Last Admin: 08/23/17 06:58 Dose: 125 mls/hr Magnesium Sulfate (4 Gm/100 Ml) 4 gm in 100 mls @ 25 mls/hr IV X1 ONE Stop: 08/23/17 14:09 Ibuprofen (Motrin) 400 mg PO Q8H PRN PRN PRN Reason: Mild-Moderate Pain (1-5/10) Loperamide HCl (Imodium) 2 - 4 mg PO UD PRN PRN Reason: LOOSE STOOLS Last Admin: 08/23/17 00:25 Dose: 4 mg Lorazepam (Ativan) 1 mg IV Q4H PRN PRN PRN Reason: Severe Anxiety Magnesium Oxide (Mag-Ox 400) 400 mg PO BID [facility] Last Admin: 08/23/17 07:51 Dose: 400 mg Methocarbamol (Methocarbamol) 750 mg PO Q6H PRN PRN PRN Reason: Muscle Aches [facility]it[facility]) [facility] Last Admin: 08/23/17 09:20 Dose: 1 tablet Nutritional Formula (Lactose Free) (Ensure Enlive) 120 ml PO 4X/DAY [facility] Last Admin: 08/23/17 09:21 Dose: 120 ml Ondansetron HCl (Zofran Odt) 4 mg PO Q6H PRN PRN PRN Reason: NAUSEA Pancrelipase (Pancrelipase (5000-17,000-27,000)) 1 capsule PO TIDCM [facility] Last Admin: 08/23/17 09:19 Dose: 1 capsule Pantoprazole Sodium (Protonix) 40 mg PO DAILY [facility] Last Admin: 08/23/17 07:51 Dose: 40 mg Senna (Senokot) 1 tablet PO QHS PRN PRN Reason: Constipation Sodium Chloride () 5 - 30 ml IV UD PRN PRN Reason: SALINE FLUSH Last Admin: 08/21/17 17:45 Dose: 10 ml Spironolactone (Aldactone) 50 mg PO BID [facility] Last Admin: 08/23/17 09:19 Dose: 50 mg Thiamine HCl (Vitamin B1) [facility] Last Admin: 08/23/17 07:52 Dose: 100 mg Trazodone HCl (Desyrel) 50 mg PO QHS [facility] Last Admin: 08/22/17 21:43 Dose: 50 mg Medical Necessity - Tobacco Use Smoking Status: Current every day smoker Tobacco Use: Cigarettes Assessment/Plan All Active Problems Generalized weakness (Acute) Recurrent falls (Acute) Chronic alcohol use and dependence (Acute) Gastritis (Acute) Acute alcoholic pancreatitis (Resolved) Ascites (Resolved) Right leg DVT (Resolved) 1. 62-year-old male with history of chronic alcohol abuse and recurrent pancreatitis admitted with complaint of frequent falls and general feeling of unwellness. 1. Hypokalemia likely due to alcohol abuse * resolved. K is 3.8 today * will monitor * * K was 3.3 on admission, is 3.1 today * will replace and monitor * 2. Hypomagnesemia: and hypocalcemia * resolving. Mg is 1.2 toay. Will give 4gram of magnesium * Ca is up to 7.4 today, ~ 8 when corrected for albumin * will give oral replacement. * 3. 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 PT/OT consulted. 4. Chronic alcohol abuse * About half a bottle of vodka every day. * Received IV thiamine in the ED. On IV fluids normal saline with potassium replacement. Multivite. Serum vitamin B12 and folic acid levels ordered. * Alcohol withdrawal protocol as per [facility] protocol. * CIWA score today is 3, per nurses documentation., per my assessment at time of review, CIWA score is 1. * 5. Recurrent pancreatitis * history of endoscopic pancreatic cyst removal in 05/31 at [facility]. * lipase was WNL during this admission. * stable. * on pancreatic enzyme replacement * 6. HTN: fairly controlled. On spironolactone 7. GERD: on PPI 8. DVT prophylaxis: heparin and SCDs Disposition: WIll DC to rehab facility today for therapy for alcohol dependence. To follow up with PCP. WIll give oral magnesium and calcium replacements This note was generated with [employer] dictation software. It may contain incorrect words, spelling, and punctuation that were not noted in checking the note before signing. Code Visit Inpatient E&M: 77132 Subs Hosp L2
--- NOTE | 2017-08-23 10:24 | PCM.DC ---
- Discharge Diagnoses Current Active Problems: Current Active and Chronic Problems Generalized weakness (Acute) Recurrent falls (Acute) Chronic alcohol use and dependence (Acute) hypokalemia, hypomagnesemia, hyponatremia You will use the following diet at home:: No restrictions Your food should be the consistency of: Regular Your liquids should be the consistency of: Regular/Thin Discharge Activity: Return to Normal Activity May resume sexual activity in: No Restrictions Weight Bearing Status: Weight bearing as tolerated Call your doctor if you observe: Fever of 101 or Higher, Inability to have a bowel movement, Shortness of breath, Dizziness Instructions: Discharge Instructions: Eating a High Potassium Diet, Discharge Instructions for Hypokalemia, Discharge Instructions for Hypomagnesemia, Discharge Instructions for Hypocalcemia Additional Instructions: to do a CBC, CMP and Magnesium in 2 days and results to be sent to PCP Allergies/Adverse Reactions: Allergies Penicillins [PCN] Allergy (Verified 08/21/17 11:34) Unknown Medications to take at Discharge Folic Acid 1 mg PO DAILY@0800 05/31/16 Multivitamin [Daily Multiple Vitamin] 1 each PO DAILY 05/31/16 Spironolactone [Aldactone] 50 mg PO BID #60 tablet 06/18/16 Aspirin [Aspirin, Baby] 81 mg PO DAILY@0800 07/29/16 Pantoprazole Sodium [Protonix] 40 mg PO DAILY #30 tablet 07/31/16 lipase/protease/amylase [Pancrelipase (5000-17,000-27,000)] 1 capsule PO TIDCM #90 capsule 07/31/16 Acetaminophen [Extra Strength Non-Aspirin] 1,000 mg PO Q8H PRN PRN 08/21/17 Ondansetron [Zofran Odt] 4 mg PO Q6H PRN PRN 08/21/17 Calcium Carbonate [Calcium] 500 mg PO BID #60 tab.chew 08/23/17 Magnesium Oxide [Mag-Ox 400] 400 mg PO BID #60 tab 08/23/17 The following prescriptions were given: Calcium Carbonate [Calcium] 500 mg PO BID #60 tab.chew Magnesium Oxide [Mag-Ox 400] 400 mg PO BID #60 tab Primary Care Physician: Dylon Flores MD [Primary Care Provider] - Please follow up with your Primary Care Physician in: one week Test Results: Test results from this visit will be discussed in further detail at your follow-up appointment, if applicable. Proposed Discharge Date: 08/23/17
--- NOTE | 2017-08-23 10:28 | DS.PCM_ITS ---
Discharge Date and Diagnosis - Problem List Patient Problems: Active and Suspected Problems Generalized weakness (Acute) Recurrent falls (Acute) Chronic alcohol use and dependence (Acute) Date of Admission: 08/21/17 Date of Discharge: 08/23/17 - Primary Discharge Diagnosis Active and Suspected Problems Generalized weakness (Acute) Recurrent falls (Acute) Chronic alcohol use and dependence (Acute) hypokalemia hypomagnesemia hyponatremia - Secondary Discharge Diagnosis Chronic Problems Pancreatic pseudocyst (Chronic) Pancreatitis (Chronic) Cholelithiasis (Chronic) Alcohol abuse (Chronic) Hiatal hernia (Chronic) GERD (gastroesophageal reflux disease) (Chronic) Severe malnutrition (Chronic) Tobacco dependence (Chronic) Hypertension (Chronic) Hospital Course and Treatment Imaging Results: Laboratory Tests 08/21/17 08/21/17 08/21/17 12:34 12:34 12:34 WBC 8.7 RBC 3.46 L Hgb 12.5 L Hct 34.7 L MCV 100.3 H MCH 36.1 H MCHC 36.0 RDW 11.2 L RDW Differential 40.2 Plt Count 374 MPV 8.2 Immature Gran % (Auto) Neut % (Auto) Lymph % (Auto) [place]ph[place] % (Auto) Eos % (Auto) Baso % (Auto) Absolute Neuts (auto) Absolute Lymphs (auto) Total Counted Sodium 126 L Potassium 2.4 L* Chloride 84 L Carbon Dioxide 32.0 Anion Gap 10 BUN 11 Creatinine 0.87 Estim Creat Clear Calc 74.37 Est GFR (MDRD) Af Amer 115 Est GFR (MDRD) Non-Af 95 BUN/Creatinine Ratio 12.6 Glucose 103 Calcium 8.4 L Magnesium Total Bilirubin 0.60 GGT AST 34 ALT 23 Alkaline Phosphatase 62 Total Protein 7.2 Albumin 3.2 Globulin 4.0 Albumin/Globulin Ratio 0.8 L Lipase 230 Vitamin B12 Folate Urine Opiates Screen Urine Methadone Screen Ur Barbiturates Screen Ur Phencyclidine Scrn Ur Amphetamines Screen U Methamphetamin-MDMA U Benzodiazepines Scrn Urine Cocaine Screen U Cannabinoids Screen Ur Drug Screen Comment Ethyl Alcohol 6.0 POC Glucose 08/21/17 08/21/17 08/21/17 12:34 17:48 20:56 WBC RBC Hgb Hct MCV MCH MCHC RDW RDW Differential Plt Count MPV Immature Gran % (Auto) Neut % (Auto) Lymph % (Auto) Hemphill % (Auto) Eos % (Auto) Baso % (Auto) Absolute Neuts (auto) Absolute Lymphs (auto) Total Counted Sodium Potassium 3.3 L Chloride Carbon Dioxide Anion Gap BUN Creatinine Estim Creat Clear Calc Est GFR (MDRD) Af Amer Est GFR (MDRD) Non-Af BUN/Creatinine Ratio Glucose Calcium Magnesium 0.9 L* Total Bilirubin GGT 94 H AST ALT Alkaline Phosphatase Total Protein Albumin Globulin Albumin/Globulin Ratio Lipase Vitamin B12 Folate Urine Opiates Screen Urine Methadone Screen Ur Barbiturates Screen Ur Phencyclidine Scrn Ur Amphetamines Screen U Methamphetamin-MDMA U Benzodiazepines Scrn Urine Cocaine Screen U Cannabinoids Screen Ur Drug Screen Comment Ethyl Alcohol POC Glucose 95 08/22/17 08/22/17 08/22/17 01:20 05:32 05:32 WBC RBC Hgb Hct MCV MCH MCHC RDW RDW Differential Plt Count MPV Immature Gran % (Auto) Neut % (Auto) Lymph % (Auto) Hemphill % (Auto) Eos % (Auto) Baso % (Auto) Absolute Neuts (auto) Absolute Lymphs (auto) Total Counted Sodium 140 Potassium 3.1 L Chloride 102 Carbon Dioxide 28.0 Anion Gap 10 BUN 14 Creatinine 0.76 Estim Creat Clear Calc 85.92 Est GFR (MDRD) Af Amer 135 Est GFR (MDRD) Non-Af 112 BUN/Creatinine Ratio 18.5 Glucose 86 Calcium 6.9 L Magnesium Total Bilirubin GGT AST ALT Alkaline Phosphatase Total Protein Albumin Globulin Albumin/Globulin Ratio Lipase Vitamin B12 642 Folate 10.20 Urine Opiates Screen NEGATIVE Urine Methadone Screen NEGATIVE Ur Barbiturates Screen NEGATIVE Ur Phencyclidine Scrn NEGATIVE Ur Amphetamines Screen NEGATIVE U Methamphetamin-MDMA NEGATIVE U Benzodiazepines Scrn POSITIVE H Urine Cocaine Screen NEGATIVE U Cannabinoids Screen NEGATIVE Ur Drug Screen Comment Ethyl Alcohol POC Glucose 08/22/17 08/23/17 08/23/17 05:32 06:46 06:46 WBC 6.4 RBC 3.02 L Hgb 10.8 L Hct 32.0 L MCV 106.0 H MCH 35.8 H MCHC 33.8 RDW 11.6 RDW Differential 43.6 Plt Count 360 MPV 8.8 Immature Gran % (Auto) 0.300 Neut % (Auto) 67.5 Lymph % (Auto) 21.3 Hemphill % (Auto) 9.7 Eos % (Auto) 0.9 Baso % (Auto) 0.3 Absolute Neuts (auto) 4.3 Absolute Lymphs (auto) 1.36 Total Counted Not Reportable Sodium 139 Potassium 3.8 Chloride 102 Carbon Dioxide 30.0 Anion Gap 7 BUN 12 Creatinine 0.74 Estim Creat Clear Calc 88.24 Est GFR (MDRD) Af Amer 138 Est GFR (MDRD) Non-Af 114 BUN/Creatinine Ratio 16.2 Glucose 87 Calcium 7.4 L Magnesium 0.8 L* 1.2 L Total Bilirubin GGT AST ALT Alkaline Phosphatase Total Protein Albumin Globulin Albumin/Globulin Ratio Lipase Vitamin B12 Folate Urine Opiates Screen Urine Methadone Screen Ur Barbiturates Screen Ur Phencyclidine Scrn Ur Amphetamines Screen U Methamphetamin-MDMA U Benzodiazepines Scrn Urine Cocaine Screen U Cannabinoids Screen Ur Drug Screen Comment Ethyl Alcohol POC Glucose Consultations 08/21/17 18:21 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 He was admitted by the ED with a complaint of generalized weakness, nausea, loss of appetite and recurrent falls. He says he drinks about 1/2 gallon of vodka daily and his last drink was prior to admission , but could not remember the exact time. He denied any other drug use. Labs done showed severe hypokalemia with potassium of 2.4, hyponatremia with sodium of 126 last otherwise normal. He was admitted for hypokalemia and hyponatremia and hypocalcemia, as well as alcohol withdrawal. Found to be severely hypomagnesemic and magnesium was replaced. Hypokalemia and hyponatremia resolved. Patient was placed on alcohol withdrawal protocol with Librium. CIWA score remained low ranging between 1 and 3. CIWA score was 3 prior to discharge. Patient remained stable and was discharged to rehab facility on 2017. Was discharged home on magnesium replacements therapy and spironolactone. He is to follow up with his PCP. [] Discharge Diet: Low fat/ Low Cholesterol Discharge Activity: Return to Normal Activity May resume sexual activity in: No Restrictions Weight Bearing Status: Weight bearing as tolerated Call your doctor if you observe: Fever of 101 or Higher, Inability to have a bowel movement, Shortness of breath, Dizziness Home Medications: Medications to take at Discharge Folic Acid 1 mg PO DAILY@0800 05/31/16 Multivitamin [Daily Multiple Vitamin] 1 each PO DAILY 05/31/16 Spironolactone [Aldactone] 50 mg PO BID #60 tablet 06/18/16 Aspirin [Aspirin, Baby] 81 mg PO DAILY@0800 07/29/16 Pantoprazole Sodium [Protonix] 40 mg PO DAILY #30 tablet 07/31/16 lipase/protease/amylase [Pancrelipase (5000-17,000-27,000)] 1 capsule PO TIDCM # 90 capsule 07/31/16 Acetaminophen [Extra Strength Non-Aspirin] 1,000 mg PO Q8H PRN PRN 08/21/17 Ondansetron [Zofran Odt] 4 mg PO Q6H PRN PRN 08/21/17 Calcium Carbonate [Calcium] 500 mg PO BID #60 tab.chew 08/23/17 Magnesium Oxide [Mag-Ox 400] 400 mg PO BID #60 tab 08/23/17 Following Prescrptions Were Given to Patient: Calcium Carbonate [Calcium] 500 mg PO BID #60 tab.chew Magnesium Oxide [Mag-Ox 400] 400 mg PO BID #60 tab Primary Care Physician: Dylon Flores MD [Primary Care Provider] - Please follow up with your Primary Care Physician in: one week Patient Instructions: Discharge Instructions for Hypocalcemia, Discharge Instructions for Hypokalemia, Discharge Instructions for Hypomagnesemia, Discharge Instructions: Eating a High Potassium Diet Disposition: Inpt Rehab Unit/Facility Minutes spent on discharge:: 45 Patient Condition:: Stable Medical Necessity - Tobacco Use Smoking Status: Current every day smoker Tobacco Use: Cigarettes Meaningful Use Info Meaningful Use Diagnoses (Choose all that apply): None applicable Code Visit Inpatient E&M: 74589 Disch Hosp
--- NOTE | 2017-08-23 10:28 | DCINST_ITS ---
- Discharge Diagnoses Current Active Problems: Current Active and Chronic Problems Generalized weakness (Acute) Recurrent falls (Acute) Chronic alcohol use and dependence (Acute) hypokalemia, hypomagnesemia, hyponatremia You will use the following diet at home:: No restrictions Your food should be the consistency of: Regular Your liquids should be the consistency of: Regular/Thin Discharge Activity: Return to Normal Activity May resume sexual activity in: No Restrictions Weight Bearing Status: Weight bearing as tolerated Call your doctor if you observe: Fever of 101 or Higher, Inability to have a bowel movement, Shortness of breath, Dizziness Instructions: Discharge Instructions: Eating a High Potassium Diet, Discharge Instructions for Hypokalemia, Discharge Instructions for Hypomagnesemia, Discharge Instructions for Hypocalcemia Additional Instructions: to do a CBC, CMP and Magnesium in 2 days and results to be sent to PCP Allergies/Adverse Reactions: Allergies Penicillins [PCN] Allergy (Verified 08/21/17 11:34) Unknown Medications to take at Discharge Folic Acid 1 mg PO DAILY@0800 05/31/16 Multivitamin [Daily Multiple Vitamin] 1 each PO DAILY 05/31/16 Spironolactone [Aldactone] 50 mg PO BID #60 tablet 06/18/16 Aspirin [Aspirin, Baby] 81 mg PO DAILY@0800 07/29/16 Pantoprazole Sodium [Protonix] 40 mg PO DAILY #30 tablet 07/31/16 lipase/protease/amylase [Pancrelipase (5000-17,000-27,000)] 1 capsule PO TIDCM # 90 capsule 07/31/16 Acetaminophen [Extra Strength Non-Aspirin] 1,000 mg PO Q8H PRN PRN 08/21/17 Ondansetron [Zofran Odt] 4 mg PO Q6H PRN PRN 08/21/17 Calcium Carbonate [Calcium] 500 mg PO BID #60 tab.chew 08/23/17 Magnesium Oxide [Mag-Ox 400] 400 mg PO BID #60 tab 08/23/17 The following prescriptions were given: Calcium Carbonate [Calcium] 500 mg PO BID #60 tab.chew Magnesium Oxide [Mag-Ox 400] 400 mg PO BID #60 tab Primary Care Physician: Dylon Flores MD [Primary Care Provider] - Please follow up with your Primary Care Physician in: one week Test Results: Test results from this visit will be discussed in further detail at your follow- up appointment, if applicable. Proposed Discharge Date: 08/23/17
--- NOTE | 2017-08-23 10:39 | NURSING ---
Addendum entered by Anitha William 08/23/17 14:28: Patient stated that he agrees to go to a rehab facility today- awaiting magnesium to infuse. [employer] has set up transport at 1530. Original Note: Addendum entered by Anitha William 08/23/17 11:28: Lisandra, with [facility], and this RN entered patient's room- asked patient what his discharge plans are. patient would not respond to this question by either staff member. Lisandra reminded patient that, per information given from family, patient will be either going to a rehab unit or possibly [facility] upon discharge from hospital. States he will wait until his girlfriend/ family member arrive prior to making a decision. Patient had 4 hour infusion of magnesium in progress. Dr. Boyle updated via telephone Original Note: Dr. Boyle states that when patient's magnesium infusion is completed he can be discharged. Noticed that librium taper is not completed until 08/24- notified to ensure discharge should be complete. Dr. Boyle requested it be clarified with [facility]- because patient stated he was going to [place] to live with a miya and did not mention anything about any rehab from alcohol withdrawal. Lisandra with [facility] was notified and is coming to unit to speak with patient.
--- NOTE | 2017-08-23 13:29 | NURSING ---
[pharmacy called at 1300- after 2 different message sent through computer orders regarding pancrelipase not on unit. med has not arrived yet- will given when able.
--- NOTE | 2017-08-23 15:57 | NURSING ---
REPORT CALLED TO ALONSO BRIAN AT [facility]. NOTIFIED THAT PATIENT HAS MEPILEX TO BUTTOCKS DUE TO PRESSURE ULCER AND DRESSING TO LEFT ELBOW. NOTIFIED OF ELECTROLYTE IMBALANCE ON ADMISSION AND THAT ALL HAS BEEN CORRECTED WHILE HERE. PRESCRIPTIONS WITH PT. NOTIFIED OF REPORTED SMOKING IN FACILITY AND THAT CIGARETTES AND TECHNICAL SUPPORT SPECIALIST ARE IN PT'S POSSESSION.
[2017-08-25 14:09] LABS: Vitamin B1, Thiamine 144.2 nmol/L (66.5-200.0)
== END 2017-08-23 15:10 | disposition home or self-care (01) | DRG 296 ==
LOC: ED 12:54 → MS2 15:18
PROVIDERS: Admitting Provider Internal Medicine; Emergency Provider Emergency Medicine; Family Provider Internal Medicine; PCP Internal Medicine; Visit Provider Student in an Organized Health Care Education/Training Program
DX: E87.6 Hypokalemia (principal); E43 Unspecified severe protein-calorie malnutrition; L89.150 Pressure ulcer of sacral region, unstageable; F10.239 Alcohol dependence with withdrawal, unspecified; E87.1 Hypo-osmolality and hyponatremia; I10 Essential (primary) hypertension; K21.9 Gastro-esophageal reflux disease without esophagitis; K86.1 Other chronic pancreatitis; E83.51 Hypocalcemia; E83.42 Hypomagnesemia; R29.6 Repeated falls; F17.210 Nicotine dependence, cigarettes, uncomplicated; Z68.21 Body mass index [BMI] 21.0-21.9, adult
CPT/HCPCS: 36415; 80048; 80053; 80307; 80320; 82607; 82746; 82962; 82977; 83690; 83735; 84132; 84425; 85025; 85027; 97161; 97165; 97802; 99283; 99406; J7030; J7050; A4216; G0480

== ENCOUNTER → 2019-12-19 10:11 | Outpatient (CLI) | payer MEDICAID, SELFPAY ==
[2019-12-19 10:38] LABS: Absolute Lymphocyte Count 2.59 X10^3/uL (0.83-4.51); Absolute Neutrophil Count 4.4 X10^3/uL (2.0-7.7); Basophil# 0.06 X10^3/uL; Basophil% 0.7 % (0-1); Eosinophil# 0.22 X10^3/uL; Eosinophils% 2.7 % (0-5); Hematocrit 42.6 % (40-54); Hemoglobin 13.4 g/dL (13.0-16.5); Lymphocyte # 2.59 X10^3/ul (4.0); Lymphocyte % 31.7 % (19-41); Mean Corp Hgb Conc 31.5 g/dL (32-36); Mean Corpuscular Hgb 27.9 pg (27.0-32.0); Mean Corpuscular Volume 88.8 fL (80-94); Mean Platelet Vol. 8.4 fl (6.2-12.0); Monocyte# 0.87 X10^3/uL; Monocyte% 10.6 % (0-10); NRBC Flagged by Analyzer 0 % (0-5); Neutrophil % 53.8 % (47-70); Platelet Count 421 K/mm3 (150-450); RBC Distribution Width CV 15.9 % (11.6-14.6); RBC Distribution Width SD 51.8 fl (35.1-43.9); White Blood Count 8.2 K/mm3 (4.4-11.0)
[2019-12-19 11:18] LABS: T4 Free Direct 0.97 ng/dL (0.76-1.46); Thyroid Stim Hormone (TSH) 5.34 uIU/mL (0.358-3.74)
[2019-12-19 13:52] LABS: T3 Total - Triiodothyronine 0.85 ng/mL (0.6-1.81)
== END ==
PROVIDERS: PCP Internal Medicine; Referring Provider Nurse Practitioner; Visit Provider Nurse Practitioner
DX: D64.9 Anemia, unspecified (principal); R79.89 Other specified abnormal findings of blood chemistry; R94.6 Abnormal results of thyroid function studies
CPT/HCPCS: 36415; 84439; 84443; 84480; 85025

== ENCOUNTER 2020-05-28 15:41 | Outpatient (RCR) | payer MEDICAID, SELFPAY ==
[2017-08-21 16:03] VITALS: BMI 21.2
== END 2020-07-21 23:59 ==
LOC: IMMUN 15:41
PROVIDERS: PCP Internal Medicine; Visit Provider Family Medicine
DX: Z23 Encounter for immunization (principal)
CPT/HCPCS: 0001A; 0002A; 91300